=== PATIENT | male | born 1990 | race Caucasian/White ===

== ENCOUNTER 2016-05-18 22:09 | Emergency (ER) | payer MEDICAID ==
[~2016-05-18] VITALS: Ht 167.6 cm; Wt 61.2 kg
[~2016-05-18 22:09] MED LIST: PROAIR HFA0.09 MG/Ac IH
[2016-05-18 22:15] VITALS: BP 125/84
--- NOTE | 2016-05-18 23:14 | NUR ---
PT TAKEN TO BED 6
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
[2016-05-19 01:22] VITALS: BP 128/87
--- NOTE | 2016-05-19 01:22 | NUR ---
Patient discharged with v/s stable. Written and verbal after care instructions given and explained TO PT AND MOTHER. MOTHER verbalized understanding of instructions. PT Ambulatory with steady gait. All questions addressed prior to discharge. ID band removed. PaRENT advised to follow up with PMD. Rx of DIPHENHYDRAMINE HYDROCHORIDE, AND PREDNISONE given. Patient educated on indication of medication including possible reaction and side effects. Opportunity to ask questions provided and answered.
== END 2016-05-19 01:22 | disposition home or self-care (01) ==
LOC: MED 22:09
DX: T50.905A Adverse effect of unspecified drugs, medicaments and biological substances, initial encounter (principal); J45.909 Unspecified asthma, uncomplicated; Y92.89 Other specified places as the place of occurrence of the external cause

== ENCOUNTER 2019-08-26 18:42 | Emergency (ER) | payer BC, MEDICAID ==
[~2019-08-26] VITALS: Ht 170.2 cm; Wt 63.5 kg
[~2019-08-26 18:42] MED LIST changes: +ALBU-136 IH; -PROAIR HFA0.09 MG/Ac IH
[2019-08-26 18:50] VITALS: BP 144/92
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
--- NOTE | 2019-08-26 19:08 | NUR ---
Pt report given to HAKAN Mercer. Transfer of care at this time.
--- NOTE | 2019-08-26 19:08 | NUR ---
RECIEVED REPORT FROM MOMO MCCLENDON. TRANSFER OF CARE AT THIS TIME.
[2019-08-26] MEDS ORDERED: ACETAMINOPHEN 325 MG TAB PO ONE (19:15)
--- NOTE | 2019-08-26 19:25 | NUR ---
PT UNABLE TO SWALLOW PILLS. REQUESTED TO GET PO SWITCHED TO LIQUIDS.
[2019-08-26] MEDS: LIDOCAINE/EPI 1% 1:100000 20 ML VIAL INJ ONE (19:27)
[2019-08-26] MEDS: ACETAMINOPHEN 650 MG/20.3 ML UDC PO ONE (19:27)
[2019-08-26] MEDS: BACITRACIN OINT 500 UNITS/GM PKT TP ONE (19:38)
--- NOTE | 2019-08-26 19:48 | NUR ---
CALLED CT TO INFORM THEM THE PT IS READY FOR CT. PT RESTING IN BED COMFORTABLY. NO VISABLE DISTRESS AT THIS TIME.
--- NOTE | 2019-08-26 19:50 | NUR ---
PT TAKEN TO CT VIA WHEELCHAIR
--- NOTE | 2019-08-26 20:02 | NUR ---
PT RETURN FROM CT
--- NOTE | 2019-08-26 20:38 | NUR ---
PT RESTING COMFORTABLY IN BED. TEMP HAS REDUCED FROM 99.7 TO 99.2. WILL CONTINUE TO MONITOR.
--- NOTE | 2019-08-26 21:03 | NUR ---
Patient discharged with v/s stable. Written and verbal after care instructions given and explained. Patient alert, oriented and verbalized understanding of instructions. Ambulatory with steady gait. All questions addressed prior to discharge. ID band removed. Patient advised to follow up with PMD. Rx of BACITRACIN, TYLENOL given. Patient educated on indication of medication including possible reaction and side effects. Opportunity to ask questions provided and answered.
[2019-08-26 21:07] VITALS: BP 138/86
== END 2019-08-26 21:03 | disposition home or self-care (01) ==
LOC: MED 18:42
DX: S01.412A Laceration without foreign body of left cheek and temporomandibular area, initial encounter (principal); H11.32 Conjunctival hemorrhage, left eye; J45.909 Unspecified asthma, uncomplicated; Z79.899 Other long term (current) drug therapy; V29.9XXA Motorcycle rider (driver) (passenger) injured in unspecified traffic accident, initial encounter; Y93.89 Activity, other specified; Y92.89 Other specified places as the place of occurrence of the external cause; Y99.8 Other external cause status
CPT/HCPCS: 12011; 70486; 99284; J2001

== ENCOUNTER 2019-08-30 16:56 | Emergency (ER) | payer BC, MEDICAID ==
[~2019-08-30] VITALS: Ht 167.6 cm; Wt 61.2 kg
[2019-08-30 17:04] VITALS: BP 115/67
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
--- NOTE | 2019-08-30 17:20 | NUR ---
ERMD ASSESSING PATIENT AT BEDSIDE
--- NOTE | 2019-08-30 17:26 | NUR ---
DPatient discharged with v/s stable. Written and verbal after care instructions given and explained. Patient verbalized understanding. Ambulatory with steady gait. All questions addressed prior to discharge. Advised to follow up with PMD.
== END 2019-08-30 17:26 | disposition home or self-care (01) ==
LOC: EEVIPCON 16:56 → MED 16:56
DX: S01.412D Laceration without foreign body of left cheek and temporomandibular area, subsequent encounter (principal); J45.909 Unspecified asthma, uncomplicated; Z79.899 Other long term (current) drug therapy; X58.XXXD Exposure to other specified factors, subsequent encounter
CPT/HCPCS: 99281

== ENCOUNTER 2019-10-22 21:35 | Emergency (ER) | payer BC, MEDICAID ==
[~2019-10-22] VITALS: Ht 180.3 cm; Wt 70.3 kg
[2019-10-22 22:07] VITALS: BP 136/80
--- NOTE | 2019-10-22 23:20 | NUR ---
PT TAKEN TO [facility]
[2019-10-22] MEDS ORDERED: BACITRACIN OINT 500 UNITS/GM PKT TP ONE (23:25)
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
[2019-10-22 23:51] VITALS: BP 129/78
--- NOTE | 2019-10-22 23:51 | NUR ---
PT VACCINATED WITH TDAP ON LT DELTOID . TOLERATED WELL. NADR
--- NOTE | 2019-10-23 00:12 | NUR ---
CLEANED PT'S WOUND ON RIGHT LOWER ARM WITH BETADINE AND NS AFTER PLACED BACITRACIN ON WOUND SITES AND COVER WITH BANDAID WITHOUT INCIDENT.
--- NOTE | 2019-10-23 00:19 | NUR ---
Patient discharged with v/s stable. Written and verbal after care instructions given and explained. Patient alert, oriented and verbalized understanding of instructions. Ambulatory with steady gait. All questions addressed prior to discharge. ID band removed. Patient advised to follow up with PMD. Rx of MOTRIN AND AUGMENTIN given. Patient educated on indication of medication including possible reaction and side effects. Opportunity to ask questions provided and answered.
== END 2019-10-23 00:19 | disposition home or self-care (01) ==
LOC: MED 21:35
DX: S61.551A Open bite of right wrist, initial encounter (principal); J45.909 Unspecified asthma, uncomplicated; Z79.899 Other long term (current) drug therapy; W54.0XXA Bitten by dog, initial encounter; Y93.89 Activity, other specified; Y92.89 Other specified places as the place of occurrence of the external cause; Y99.8 Other external cause status
CPT/HCPCS: 73100; 90471; 90715; 99283

== ENCOUNTER 2023-05-24 22:07 | Emergency (ER) | payer OTHER, BC ==
[~2023-05-24] VITALS: Ht 170.2 cm; Wt 68.0 kg
[~2023-05-24 22:07] MED LIST changes: +ALBU-118 IH; -ALBU-136 IH
[2023-05-24 22:10] VITALS: BP 136/78; PULSE 79; RESP 17; TEMP 97.9; O2SAT 100
[2023-05-25] MEDS ORDERED: ALBUTEROL SULFATE/IPRATROPIU 3 ML SOL IH ONE (01:00)
[2023-05-25 01:11] VITALS: PULSE 89; RESP 18; O2SAT 100
[2023-05-25 01:37] LABS: FLU A ANTIGEN negative (NEGATIVE); FLU B ANTIGEN NEGATIVE (NEGATIVE)
[2023-05-25] MEDS ORDERED: PRED20TA5 PO (02:05)
[2023-05-25] MEDS ORDERED: AZIT250T4 PO (02:05)
[2023-05-25 02:20] VITALS: BP 128/76; PULSE 88; RESP 18; TEMP 97.6; O2SAT 98
[2023-05-25] MEDS ORDERED: AZIT200P14 PO (02:32)
[2023-05-25] MEDS ORDERED: PRED15SO53 PO (02:32)
== END 2023-05-25 02:18 | disposition home or self-care (01) ==
LOC: MED 22:07
DX: J20.9 Acute bronchitis, unspecified (principal); Z20.822 Contact with and (suspected) exposure to COVID-19; J45.901 Unspecified asthma with (acute) exacerbation; Z79.899 Other long term (current) drug therapy
CPT/HCPCS: 71045; 87426; 87804; 94640; 99285; Q0092

== ENCOUNTER 2023-06-19 20:32 | Emergency (ER) | payer BC ==
[~2023-06-19] VITALS: Ht 170.2 cm; Wt 65.8 kg
[~2023-06-19 20:32] MED LIST changes: +AZIT200P14 PO; +PRED15SO53 PO
[2023-06-19 20:40] VITALS: BP 122/73; PULSE 116; RESP 18; TEMP 98.3; O2SAT 99
[2023-06-19 21:19] VITALS: O2SAT 99
[2023-06-19] MEDS: IPRATROPIUM 0.02% 0.5 MG/2.5 ML NEBU INH ONE (21:43)
[2023-06-19] MEDS: ALBUTEROL 0.083% 2.5 MG/3 ML NEBU INH ONE (21:43)
[2023-06-19 21:47] VITALS: PULSE 110; RESP 20; O2SAT 100
[2023-06-19] MEDS ORDERED: AMOX250P30 PO (22:12)
[2023-06-19 23:58] VITALS: O2SAT 100
[2023-06-19 23:59] LABS: FLU A ANTIGEN negative (NEGATIVE); FLU B ANTIGEN NEGATIVE (NEGATIVE)
[2023-06-20 00:15] VITALS: BP 120/87; PULSE 121; RESP 18; O2SAT 97
== END 2023-06-20 00:15 | disposition home or self-care (01) ==
LOC: MED 20:32
DX: J45.909 Unspecified asthma, uncomplicated (principal); Z20.822 Contact with and (suspected) exposure to COVID-19; Z79.899 Other long term (current) drug therapy
CPT/HCPCS: 71045; 87426; 87804; 94640; 99285; J7613; J7644